=== PATIENT | male | born 1985 | race Caucasian/White ===

== ENCOUNTER 2016-10-23 16:52 | Inpatient (IN) | payer MEDICAID, OTHER ==
[2016-10-23] MEDS ORDERED: Sodium Chloride 0.9% 1,000 ML IV ONE (17:56)
[2016-10-23] MEDS ORDERED: Sodium Chloride 0.9% 1,000 ML ONE (18:19)
[2016-10-23 18:25] LABS: BASO % 0.2 % (0.0-2.0); EOS % 0.5 % (0.0-4.0); HEMATOCRIT 44.6 % (35.0-51.0); LYMPH # 1.8 K/uL (1.0-4.3); LYMPH % 18.4 % (20.0-40.0); MEAN CORPUSCULAR HEMOGLOBIN 25.6 pg (27.0-31.0); MEAN CORPUSCULAR HGB CONC 33.2 g/dL (33.0-37.0); MEAN PLATELET VOLUME 7.5 fL (7.2-11.7); MONO # 0.6 K/uL (0.0-0.8); MONO % 5.8 % (0.0-10.0); RED CELL DISTRIBUTION WIDTH 13.4 % (11.5-14.5); WHITE BLOOD COUNT 9.8 K/uL (4.8-10.8)
[2016-10-23 18:30] LABS: CHLORIDE 97 mmol/L (98-107); SODIUM 138 mmol/L (132-148)
[2016-10-23 18:31] LABS: POTASSIUM 3.9 mmol/L (3.6-5.2)
[2016-10-23 18:33] LABS: ALB/GLOB RATIO 1.2 (1.0-2.1); AST/SGOT 21 U/L (17-59); BLOOD UREA NITROGEN 11 mg/dL (9-20); CARBON DIOXIDE 26 mmol/L (22-30); GFR AFRICAN-AMERICAN > 60; GLUCOSE,RANDOM 83 mg/dL (75-110); TOTAL PROTEIN 8.3 g/dL (6.3-8.3)
[2016-10-23 18:34] LABS: ALKALINE PHOSPHATASE 60 U/L (38-126); ALT/SGPT 44 U/L (21-72); CALCIUM 9.4 mg/dl (8.6-10.4)
[2016-10-23 18:37] LABS: INR 1.2
[2016-10-23] MEDS ORDERED: Iohexol 350mg/ml 100 ML ONE (18:40)
--- NOTE | 2016-10-23 19:41 | CT ---
EXAM: CT Neck With Intravenous Contrast EXAM DATE/TIME: Exam ordered 10/23/2016 5:47 PM CLINICAL HISTORY: 31 years old, male; Condition or disease; Salivary gland disease; Additional info: R face/neck, ? sialoadenitis TECHNIQUE: Axial computed tomography images of the neck with intravenous contrast. All CT scans at this facility use one or more dose reduction techniques, viz.: automated exposure control; ma/kV adjustment per patient size (including targeted exams where dose is matched to indication; i.e. head); or iterative reconstruction technique. Coronal and sagittal reformatted images were created and reviewed. CONTRAST: 100 mL of OMNIPAQUE 360 administered intravenously. COMPARISON: No relevant prior studies available. FINDINGS: Nasopharynx: Unremarkable. Oropharynx: Unremarkable. No significant tonsillar enlargement. No peritonsillar abscess. Hypopharynx: Unremarkable. Larynx: Unremarkable. Normal epiglottis. Trachea: Unremarkable. Retropharyngeal space: Unremarkable. Submandibular/parotid glands: There is asymmetric enlargement of the right submandibular gland when compared with the left. There is a calcification measuring 1.9 x 1 x 1.1 cm in noted at the level of the right submandibular gland duct.. Extending medially towards the floor the mouth is a fluid collection measuring 1.9 x 1.1 x 0.82 cm The inflammatory changes noted surrounding the right submandibular gland extend laterally to include the platysmas muscle. Inflammatory change also extends into the right parapharyngeal fat space. The Thyroid: Unremarkable. No enlarged or calcified nodules. Bones/joints: No acute fracture. Soft tissues: See above. Vasculature: No acute findings. Lymph nodes: . An enlarged right jugulodigastric node is present measuring 1.4 x 1.2 x 3.5 cm. A pre-submandibular lymph node is noted measuring 1.3 x 0.9 x 1.5 cm. there are multiple lymph nodes noted in the posterior cervical space measuring under a centimeter. Sinuses: Mucosal thickening is seen in the left maxillary sinus. Lung apices: Unremarkable as visualized. IMPRESSION: 1. Sialitis involving the submandibular gland on the right secondary to an obstructing calculus. 2. Discrete fluid collection medial to the calculus suggests a small abscess. The fluid collection in could also represent a dilated portion of the submandibular duct.
[2016-10-23] MEDS ORDERED: Piperacillin/Tazobact 3.375 gm 100 ML IV STA (19:44)
[2016-10-23] MEDS ORDERED: Piperacillin/Tazobact 3.375 gm 100 ML IVPB ONE (19:48)
--- NOTE | 2016-10-23 19:53 | C.PDOC ---
History Of Present Illness 31 year old male presents to the ED with pain and swelling below the right lower jaw for one week. Patient was seen by ENT Dr. Lebron and started oral antibiotics five days ago. Patient has been compliant but notes no improvement. He was referred to the ED for a CT scan. Patient denies fever, chills, nausea, or vomiting. Time Seen by Provider: 10/23/16 17:45 Chief Complaint (Nursing): ENT Problem History Per: Patient History/Exam Limitations: None Onset/Duration Of Symptoms: Days (1 week ) Current Symptoms Are (Timing): Still Present Quality (Mouth/Throat): Other (Swelling and pain to below right lower jaw ) Symptoms Have Been: Continuous Anticoagulant/Antiplatlet Use?: No Recent Aspirin Use: No Past Medical History Reviewed: Historical Data, Nursing Documentation, Vital Signs Vital Signs: Last Vital Signs Temp 99.3 F 10/23/16 17:13 Pulse 76 10/23/16 17:13 Resp 18 10/23/16 17:13 BP 138/82 10/23/16 17:13 Pulse Ox 99 10/23/16 19:54 Surgical History: Tonsillectomy Family History: States: Unknown Family Hx - Social History Hx Alcohol Use: Yes Hx Substance Use: No - Immunization History Hx Tetanus Toxoid Vaccination: No Hx Influenza Vaccination: No Hx Pneumococcal Vaccination: No Review Of Systems Constitutional: Negative for: Fever, Chills ENT: Positive for: Other (pain and swelling right lower jaw ) Cardiovascular: Negative for: Chest Pain, Palpitations Gastrointestinal: Negative for: Nausea, Vomiting, Abdominal Pain, Diarrhea Physical Exam - Physical Exam Appears: Non-toxic, No Acute Distress Skin: Warm, Dry Head: Other (Swelling and firm mass in right submandibular area ) Eye(s): bilateral: Normal Inspection, PERRL, EOMI Ear(s): Bilateral: Normal Nose: Normal Oral Mucosa: Moist Tongue: Normal Appearing, No Swelling Lips: Normal Appearing, No Swelling Teeth: Normal Dentition Gingiva: Normal Appearing Throat: Normal, No Erythema, No Exudate Neck: Supple Chest: Symmetrical, No Deformity Cardiovascular: Rhythm Regular Respiratory: Normal Breath Sounds, No Rhonchi, No Wheezing ED Course And Treatment - Laboratory Results Result Diagrams: 10/23/16 18:17 10/23/16 18:17 Lab Interpretation: Normal O2 Sat by Pulse Oximetry: 99 (room air ) Progress Note: 1930: zosyn, IVF, toradol, tramadol Reevaluation Time: 19:45 Reassessment Condition: Improved - Physician Consult Information Time Consulting Physician Contacted: 18:00 Physician Contacted: Haris Lebron Outcome Of Conversation: Case discussed with Dr. Lebron at 18:00 and 19:30, recommends admission to medicine. Agrees with plan of IV antibiotics and transfer to [facility] next week. Medical Decision Making Medical Decision Making: large R submandibular sialolith 1cm, failed outpatient PO ABX regimen, now for IV ABX and cool-off period pending transfer out in a few days for surgical excision. Disposition Doctor Will See Patient In The: Hospital Counseled Patient/Family Regarding: Studies Performed, Diagnosis - Disposition Disposition: HOSPITALIZED Disposition Time: 19:54 Condition: GOOD - Clinical Impression Clinical Impression: Sialolithiasis of submandibular gland - Scribe Statement The provider has reviewed the documentation as recorded by the Scribe Norma Graham All medical record entries made by the Yayaibabdirashid were at my direction and personally dictated by me. I have reviewed the chart and agree that the record accurately reflects my personal performance of the history, physical exam, medical decision making, and the department course for this patient. I have also personally directed, reviewed, and agree with the discharge instructions and disposition.
--- NOTE | 2016-10-23 20:20 | CP.PCM.HP ---
Addendum entered and electronically signed by Kerri Rios DO 10/23/16 21:57 : Tramadol PO TID PRN for pain Original Note: <Kerri Rios - Last Filed: 10/23/16 21:38> History of Present Illness - History of Present Illness History of Present Illness: Medicine Note for Dr. Castaneda CC: Right sided throat pain HPI: 31M with PMHx of right sided salivary stone came to the ED as per reccs of Dr. Lebron. Patient has a history of a salivary stone several years ago. He was seen at that time by Dr. Lebron and was given oral antibiotics and it resolved. Patient reports he started to feel the mass again over the weekend, had trouble swallowing and eating. He saw Dr. Lebron in his office on Wednesday, was given Augmentin. Patient has taken Augmentin x 5 days with no improvement. The pain has worsened and the patient is having difficulty even tolerating liquids. Patient reached out to Dr. Lebron who instructed the patient to come to the ED. As per Dr. Lebron patient pending transfer out in a few days for surgical excision. Denied fever, chills, headache, abdominal pain, n/v/d/c, or urinary symptoms. PMHx: Right sided salivary stone PSHx: Denied Meds: Was taking Augmentin x 5 days - prescribed to him by Dr. Lebron All: NKDA SHx: Denied x3 FHx: Unremarkable Present on Admission - Present on Admission Any Indicators Present on Admission: No Past Patient History - Infectious Disease Hx of Infectious Diseases: None - Past Social History Smoking Status: Never Smoked - PSYCHIATRIC Hx Substance Use: No - SURGICAL HISTORY Hx Tonsillectomy: Yes - ANESTHESIA Hx Anesthesia: Yes Hx Anesthesia Reactions: No Hx Malignant Hyperthermia: No Meds Allergies/Adverse Reactions: Allergies Allergy/AdvReac Type Severity Reaction Status Date / Time No Known Allergies Allergy Verified 10/23/16 17:16 Physical Exam - Constitutional Appears: No Acute Distress - Head Exam Head Exam: NORMAL INSPECTION, NORMOCEPHALIC - Eye Exam Eye Exam: EOMI, Normal appearance, PERRL Pupil Exam: NORMAL ACCOMODATION - ENT Exam ENT Exam: Mucous Membranes Moist Additional comments: poor dentition - Neck Exam Neck exam: Positive for: Tenderness. Negative for: Lymphadenopathy, Thyromegaly Additional comments: Right sided mass - Respiratory Exam Respiratory Exam: Clear to Auscultation Bilateral, NORMAL BREATHING PATTERN. absent: Decreased Breath Sounds, Rhonchi, Wheezes - Cardiovascular Exam Cardiovascular Exam: REGULAR RHYTHM - GI/Abdominal Exam GI & Abdominal Exam: Normal Bowel Sounds, Soft. absent: Distended, Tenderness - Extremities Exam Extremities exam: Positive for: normal inspection, pedal pulses present. Negative for: pedal edema, tenderness - Neurological Exam Neurological exam: Alert, Oriented x3 - Skin Skin Exam: Dry, Intact, Normal Color, Warm Results - Vital Signs Recent Vital Signs: Last Vital Signs Temp 99.3 F 10/23/16 17:13 Pulse 76 10/23/16 17:13 Resp 18 10/23/16 17:13 BP 138/82 10/23/16 17:13 Pulse Ox 99 10/23/16 20:14 - Labs Result Diagrams: 10/23/16 18:17 10/23/16 18:17 Assessment & Plan - Assessment and Plan (Free Text) Plan: Right Sided Submandibular Sialolith * Failed outpatient antibiotic tx * ENT- Dr. Lebron consulted - help appreciated - pending transfer out in a few days for surgical excision. * Neck CT: 1. Sialitis involving the submandibular gland on the right secondary to an obstructing calculus. 2. Discrete fluid collection medial to the calculus suggests a small abscess. The fluid collection in could also represent a dilated portion of the submandibular duct. * Started on Zosyn Q6H Prophylactic Measures * GI PPX: Protonix 40mg IVP daily * DVT PPX: SCDs, Heparin Q12 * CLD - due to difficulty swallowing Disposition: Pending transfer out for surgical excision. Blanca London Dr., DO, PGY-1 <Bobby Castaneda - Last Filed: 10/24/16 06:10> Results - Vital Signs Recent Vital Signs: Last Vital Signs Temp 97.8 F 10/24/16 00:00 Pulse 64 10/24/16 00:00 Resp 20 10/24/16 00:00 BP 103/67 10/24/16 00:00 Pulse Ox 99 10/24/16 00:00 - Labs Result Diagrams: 10/23/16 18:17 10/23/16 18:17 Assessment & Plan - Date & Time Date: 10/24/16 (I have seen and examined the patient. I agree with the findings and plan of care as documented by Dr. Rios. Patient with sialolith. Consult to Dr Lebron. Continue Zosyn. Pending transfer to another facility for surgical excision. Symptomatic treatment. Monitor for acute changes.) Time: 06:09 Attending/Attestation - Attestation I have personally seen and examined this patient.: Yes I have fully participated in the care of the patient.: Yes I have reviewed all pertinent clinical information: Yes
[2016-10-23] MEDS: Piperacill/Tazo 3.375gm in Dex 3.375 GM/50 ML BAG IVPB SCH (20:32)
[2016-10-23 22:14] VITALS: RESP 20
--- NOTE | 2016-10-24 01:46 | CP.PCM.PN ---
<LowKerri buchanan - Last Filed: 10/24/16 01:44> Subjective - Date & Time of Evaluation Date of Evaluation: 10/24/16 Time of Evaluation: 01:00 - Subjective Subjective: Medicine Note for Dr. Silva Patient was seen and examined at bedside. Patient is resting. No acute complaints, pain is well controlled. Denied fever, chills, headache, chest pain , abdominal pain, n/v/d/c, or urinary symptoms. Objective - Vital Signs/Intake and Output Vital Signs (last 24 hours): Temp Pulse Resp BP Pulse Ox 97.8 F 64 20 103/67 99 10/24/16 00:00 10/24/16 00:00 10/24/16 00:00 10/24/16 00:00 10/24/16 00:00 - Medications Medications: Current Medications Heparin Sodium (Porcine) (Heparin) 5,000 units SC Q12 [facility] Last Admin: 10/23/16 20:41 Dose: 5,000 units Piperacillin Sod/Tazobactam Sod (Zosyn 3.375 Gm Iv Premix) 3.375 gm in 50 mls @ 200 mls/hr IVPB Q6H [facility] Last Admin: 10/23/16 20:32 Dose: Not Given Pantoprazole Sodium (Protonix Inj) 40 mg IVP Q12H [facility] Last Admin: 10/24/16 00:15 Dose: 40 mg Saccharomyces Boulardii (Florastor) 250 mg PO DAILY [facility] Tramadol HCl (Ultram) 50 mg PO TID PRN PRN Reason: Pain, moderate (4-7) - Labs Labs: PT 13.4 SECONDS (9.7-12.2) H 10/23/16 18:17 INR 1.2 10/23/16 18:17 APTT 32 SECONDS (21-34) 10/23/16 18:17 - Constitutional Appears: No Acute Distress - Head Exam Head Exam: NORMAL INSPECTION, NORMOCEPHALIC - Eye Exam Eye Exam: EOMI, Normal appearance, PERRL Pupil Exam: NORMAL ACCOMODATION - ENT Exam ENT Exam: Mucous Membranes Moist - Neck Exam Additional comments: Right sided mass - Respiratory Exam Respiratory Exam: Clear to Ausculation Bilateral, NORMAL BREATHING PATTERN. absent: Decreased Breath Sounds, Wheezes - Cardiovascular Exam Cardiovascular Exam: REGULAR RHYTHM, RRR, +S1, +S2 - GI/Abdominal Exam GI & Abdominal Exam: Soft, Normal Bowel Sounds. absent: Distended, Tenderness - Extremities Exam Extremities Exam: Normal Inspection. absent: Pedal Edema, Tenderness - Neurological Exam Neurological Exam: Alert, Awake, Oriented x3 - Psychiatric Exam Psychiatric exam: Normal Affect, Normal Mood - Skin Skin Exam: Dry, Intact, Normal Color, Warm Assessment and Plan - Assessment and Plan (Free Text) Plan: Right Sided Submandibular Sialolith * Failed outpatient antibiotic tx * ENT- Dr. Lebron consulted - help appreciated - pending transfer out in a few days for surgical excision. * Neck CT: 1. Sialitis involving the submandibular gland on the right secondary to an obstructing calculus. 2. Discrete fluid collection medial to the calculus suggests a small abscess. The fluid collection in could also represent a dilated portion of the submandibular duct. * Started on Zosyn Q6H * Tramadol PO TID PRN for pain Prophylactic Measures * GI PPX: Protonix 40mg IVP daily * DVT PPX: SCDs, Heparin Q12 * CLD - due to difficulty swallowing Disposition: Pending transfer out for surgical excision. DW Blanca Cleary DO, PGY-1 <Kev Rossi H - Last Filed: 10/24/16 14:01> Objective - Vital Signs/Intake and Output Vital Signs (last 24 hours): Temp Pulse Resp BP Pulse Ox 98.0 F 75 20 108/73 100 10/24/16 08:14 10/24/16 08:14 10/24/16 08:14 10/24/16 08:14 10/24/16 08:14 - Medications Medications: Current Medications Heparin Sodium (Porcine) (Heparin) 5,000 units SC Q12 [facility] Last Admin: 10/24/16 09:54 Dose: 5,000 units Piperacillin Sod/Tazobactam Sod (Zosyn 3.375 Gm Iv Premix) 3.375 gm in 50 mls @ 200 mls/hr IVPB Q6H [facility] Last Admin: 10/24/16 08:30 Dose: 200 mls/hr Ketorolac Tromethamine (Toradol) 30 mg IVP Q6 PRN PRN Reason: Pain, Mild (1-3) Pantoprazole Sodium (Protonix Inj) 40 mg IVP Q12H [facility] Last Admin: 10/24/16 08:31 Dose: 40 mg Saccharomyces Boulardii (Florastor) 250 mg PO DAILY [facility] Last Admin: 10/24/16 09:56 Dose: 250 mg Tramadol HCl (Ultram) 50 mg PO TID PRN PRN Reason: Pain, moderate (4-7) Last Admin: 10/24/16 11:01 Dose: 50 mg - Labs Labs: 10/24/16 08:01 10/24/16 08:01 PT 13.4 SECONDS (9.7-12.2) H 10/23/16 18:17 INR 1.2 10/23/16 18:17 APTT 32 SECONDS (21-34) 10/23/16 18:17 Attending/Attestation - Attestation I have personally seen and examined this patient.: Yes I have fully participated in the care of the patient.: Yes I have reviewed all pertinent clinical information, including history, physical exam and plan: Yes Notes (Text): Medical Attending: Patient was seen and examined by me. Patient is currently on IV abx at this time. He failed out patient treatment at this time and so was told to come to the hospital and had a CT scan showing a stone that involving the submandibular gland on the right secondary causing obstruction. The report also shows fluid collection medial to the stone suggesting a small abscess. On exam he does have submandibular swelling as well as a palpable lymph node. From understanding the patient may need to be transffered to another facility for potential surgery. Kev Rossi
[2016-10-24] MEDS: Piperacill/Tazo 3.375gm in Dex 3.375 GM/50 ML BAG IVPB SCH ×4 (02:32→20:34)
[2016-10-24 08:14] LABS: BASO % 0.3 % (0.0-2.0); EOS # 0.1 K/uL (0.0-0.7); HEMATOCRIT 42.5 % (35.0-51.0); LYMPH # 2.3 K/uL (1.0-4.3); LYMPH % 39.2 % (20.0-40.0); MEAN CELL VOLUME 77.1 fL (80.0-94.0); MEAN CORPUSCULAR HEMOGLOBIN 25.1 pg (27.0-31.0); MEAN CORPUSCULAR HGB CONC 32.6 g/dL (33.0-37.0); MEAN PLATELET VOLUME 7.8 fL (7.2-11.7); MONO # 0.4 K/uL (0.0-0.8); MONO % 7.3 % (0.0-10.0); NRBC % 0.1 % (0.0-2.0); RED CELL DISTRIBUTION WIDTH 13.3 % (11.5-14.5); WHITE BLOOD COUNT 5.9 K/uL (4.8-10.8)
[2016-10-24] MEDS: Saccharomyces Boulardi 250 mg Cap PO SCH ×2 (08:31→09:56)
[2016-10-24 08:45] LABS: CHLORIDE 99 mmol/L (98-107)
[2016-10-24 08:46] LABS: POTASSIUM 3.7 mmol/L (3.6-5.2); SODIUM 137 mmol/L (132-148)
[2016-10-24 08:48] LABS: ALB/GLOB RATIO 1.2 (1.0-2.1); AST/SGOT 18 U/L (17-59); BILIRUBIN,TOTAL 1.3 mg/dL (0.2-1.3); CARBON DIOXIDE 25 mmol/L (22-30); GFR AFRICAN-AMERICAN > 60
[2016-10-24 08:49] LABS: ALKALINE PHOSPHATASE 51 U/L (38-126); ALT/SGPT 36 U/L (21-72); BLOOD UREA NITROGEN 14 mg/dL (9-20); CALCIUM 8.7 mg/dl (8.6-10.4); GLUCOSE,RANDOM 62 mg/dL (75-110)
[2016-10-24] MEDS ORDERED: Saccharomyces Boulardi 250 mg Cap PO SCH (10:00)
--- NOTE | 2016-10-24 20:38 | CON ---
DATE: 10/24/2016 REASON FOR CONSULTATION: Sialoadenitis. HISTORY OF PRESENT ILLNESS: This is a 31-year-old male with about a 1-week history of edema of the right submandibular gland. The patient was seen by me in the office. At that time, it was noted to be moderate. The pain that the patient had was also moderate, constant. The patient was placed on p.o. antibiotics, however, it did not improve. He presented to the office yesterday with increased pain and swelling and was sent to the emergency room and had CAT scan done, which showed a stone in his submandibular duct. The patient is on currently antibiotics. He reports decreased pain. PAST MEDICAL HISTORY: As noted in the chart by me. MEDICATIONS: As noted in the chart by me. PHYSICAL EXAMINATION: HEAD: Atraumatic, normocephalic. FACE: Good facial movements bilaterally. CONSTITUTIONAL: Well fed, well nourished. COMMUNICATION: Communicates appropriately. EXTERNAL NOSE: No masses. No lesions. No erythema. No edema. INTERNAL NOSE: No masses. No lesions. No erythema. No edema. ORAL CAVITY AND OROPHARYNX: No masses. No lesions. No erythema. No edema. no stone palpated in the submandibular duct. LIPS AND GUMS: No masses. No lesions. No erythema. No edema. NECK: Supple. The right submandibular gland is enlarged and tender to touch. LYMPH NODES: No lymphadenopathy of the neck. THYROID: No thyromegaly. No goiter. ASSESSMENT: Sialoadenitis. Deviated septum. PLAN: Continue IV antibiotics. Consider Decadron IV 10 mg x1. Haris Lebron MD MTDD
--- NOTE | 2016-10-25 01:42 | CP.PCM.PN ---
<Kerri Rios - Last Filed: 10/25/16 01:40> Subjective - Date & Time of Evaluation Date of Evaluation: 10/25/16 Time of Evaluation: 01:00 - Subjective Subjective: Medicine Note for Dr. Silva Patient was seen and examined at bedside. Patient is resting. No acute complaints, pain is well controlled. Denied fever, chills, headache, chest pain , abdominal pain, n/v/d/c, or urinary symptoms. Objective - Vital Signs/Intake and Output Vital Signs (last 24 hours): Temp Pulse Resp BP Pulse Ox 98.1 F 62 20 101/69 98 10/25/16 00:00 10/25/16 00:00 10/25/16 00:00 10/25/16 00:00 10/25/16 00:00 Intake and Output: 10/24/16 10/25/16 18:59 06:59 Intake Total 460 450 Balance 460 450 - Medications Medications: Current Medications Heparin Sodium (Porcine) (Heparin) 5,000 units SC Q12 [facility] Last Admin: 10/24/16 21:10 Dose: 5,000 units Piperacillin Sod/Tazobactam Sod (Zosyn 3.375 Gm Iv Premix) 3.375 gm in 50 mls @ 200 mls/hr IVPB Q6H [facility] Last Admin: 10/24/16 20:34 Dose: 200 mls/hr Ketorolac Tromethamine (Toradol) 30 mg IVP Q6 PRN PRN Reason: Pain, Mild (1-3) Last Admin: 10/24/16 23:39 Dose: 30 mg Pantoprazole Sodium (Protonix Inj) 40 mg IVP Q12H [facility] Last Admin: 10/24/16 20:30 Dose: 40 mg Saccharomyces Boulardii (Florastor) 250 mg PO DAILY [facility] Last Admin: 10/24/16 09:56 Dose: 250 mg Tramadol HCl (Ultram) 50 mg PO TID PRN PRN Reason: Pain, moderate (4-7) Last Admin: 10/24/16 11:01 Dose: 50 mg - Labs Labs: 10/24/16 08:01 10/24/16 08:01 PT 13.4 SECONDS (9.7-12.2) H 10/23/16 18:17 INR 1.2 08/18/17 18:17 APTT 32 SECONDS (21-34) 10/23/16 18:17 - Constitutional Appears: No Acute Distress - Head Exam Head Exam: NORMAL INSPECTION, NORMOCEPHALIC - Eye Exam Eye Exam: EOMI, Normal appearance Pupil Exam: NORMAL ACCOMODATION - ENT Exam ENT Exam: Mucous Membranes Moist - Neck Exam Neck Exam: Lymphadenopathy Additional comments: right sided neck mass - Respiratory Exam Respiratory Exam: Clear to Ausculation Bilateral, NORMAL BREATHING PATTERN. absent: Decreased Breath Sounds, Wheezes - Cardiovascular Exam Cardiovascular Exam: REGULAR RHYTHM, RRR, +S1, +S2 - GI/Abdominal Exam GI & Abdominal Exam: Soft, Normal Bowel Sounds. absent: Distended, Tenderness - Extremities Exam Extremities Exam: Normal Inspection. absent: Pedal Edema, Tenderness - Neurological Exam Neurological Exam: Alert, Awake, Oriented x3 - Psychiatric Exam Psychiatric exam: Normal Affect, Normal Mood - Skin Skin Exam: Dry, Intact, Normal Color, Warm Assessment and Plan - Assessment and Plan (Free Text) Plan: Right Sided Submandibular Sialolith * Failed outpatient antibiotic tx * ENT- Dr. Lebron consulted - help appreciated - pending transfer out in a few days for surgical excision. * Neck CT: 1. Sialitis involving the submandibular gland on the right secondary to an obstructing calculus. 2. Discrete fluid collection medial to the calculus suggests a small abscess. The fluid collection in could also represent a dilated portion of the submandibular duct. * Started on Zosyn Q6H * Tramadol PO TID PRN for pain Prophylactic Measures * GI PPX: Protonix 40mg IVP daily * DVT PPX: SCDs, Heparin Q12 * CLD - due to difficulty swallowing Disposition: Pending transfer out for surgical excision. Blanca Lee Dr., DO, PGY-1 <Fermin Pan - Last Filed: 10/25/16 18:00> Objective - Vital Signs/Intake and Output Vital Signs (last 24 hours): Temp Pulse Resp BP Pulse Ox 98.2 F 82 20 118/80 99 10/25/16 15:00 10/25/16 15:00 10/25/16 15:00 10/25/16 15:00 10/25/16 15:00 Intake and Output: 10/25/16 10/25/16 06:59 18:59 Intake Total 500 Output Total 500 Balance 0 - Medications Medications: Current Medications Heparin Sodium (Porcine) (Heparin) 5,000 units SC Q12 [facility] Last Admin: 10/25/16 09:44 Dose: 5,000 units Piperacillin Sod/Tazobactam Sod (Zosyn 3.375 Gm Iv Premix) 3.375 gm in 50 mls @ 200 mls/hr IVPB Q6H [facility] Last Admin: 10/25/16 15:21 Dose: 200 mls/hr Ketorolac Tromethamine (Toradol) 30 mg IVP Q6 PRN PRN Reason: Pain, Mild (1-3) Last Admin: 10/25/16 09:51 Dose: 30 mg Pantoprazole Sodium (Protonix Ec Tab) 20 mg PO DAILY [facility] Last Admin: 10/25/16 09:43 Dose: 20 mg Saccharomyces Boulardii (Florastor) 250 mg PO DAILY [facility] Last Admin: 10/25/16 09:44 Dose: 250 mg Tramadol HCl (Ultram) 50 mg PO TID PRN PRN Reason: Pain, moderate (4-7) Last Admin: 10/24/16 11:01 Dose: 50 mg - Labs Labs: PT 13.4 SECONDS (9.7-12.2) H 10/23/16 18:17 INR 1.2 10/23/16 18:17 APTT 32 SECONDS (21-34) 10/23/16 18:17 Attending/Attestation - Attestation I have personally seen and examined this patient.: Yes I have fully participated in the care of the patient.: Yes I have reviewed all pertinent clinical information, including history, physical exam and plan: Yes Notes (Text): 10/25/16 17:57 Patient was seen and examined at 3:10 PM 10/25/16 350 B Upon FULL ROS: Pain in the right side of the face is currently manageable NO bowel movement since Wednesday Tolerating liquid diet NO other complaints upon FULL ROS In addition to the exam above: HEENT: dry tongue with white pasty material Assessments: 1). Right Submandibular Sialolith: awaiting arrangement by ENT Dr. Emmanuel for transfer to another institution for surgery for removal. Fermin Pan D.O.
[2016-10-25] MEDS: Piperacill/Tazo 3.375gm in Dex 3.375 GM/50 ML BAG IVPB SCH ×4 (03:10→20:58)
[2016-10-25 08:38] LABS: BASO % 0.5 % (0.0-2.0); EOS # 0.1 K/uL (0.0-0.7); EOS % 1.7 % (0.0-4.0); HEMATOCRIT 42.4 % (35.0-51.0); LYMPH # 1.6 K/uL (1.0-4.3); LYMPH % 39.3 % (20.0-40.0); MEAN CELL VOLUME 76.6 fL (80.0-94.0); MEAN CORPUSCULAR HGB CONC 32.7 g/dL (33.0-37.0); MEAN PLATELET VOLUME 7.7 fL (7.2-11.7); MONO # 0.3 K/uL (0.0-0.8); MONO % 7.6 % (0.0-10.0); NRBC % 0.1 % (0.0-2.0); RED CELL DISTRIBUTION WIDTH 12.9 % (11.5-14.5)
[2016-10-25 08:51] LABS: ALB/GLOB RATIO 1.2 (1.0-2.1); ALKALINE PHOSPHATASE 50 U/L (38-126); ALT/SGPT 31 U/L (21-72); AST/SGOT 18 U/L (17-59); BILIRUBIN,TOTAL 0.8 mg/dL (0.2-1.3); BLOOD UREA NITROGEN 11 mg/dL (9-20); CALCIUM 9.1 mg/dl (8.6-10.4); CARBON DIOXIDE 26 mmol/L (22-30); CHLORIDE 100 mmol/L (98-107); GFR AFRICAN-AMERICAN > 60; GLUCOSE,RANDOM 70 mg/dL (75-110); SODIUM 137 mmol/L (132-148); TOTAL PROTEIN 6.6 g/dL (6.3-8.3)
[2016-10-25] MEDS: Pantoprazole 20 mg EC Tab PO SCH (09:43)
[2016-10-25] MEDS: Saccharomyces Boulardi 250 mg Cap PO SCH (09:44)
[2016-10-26] MEDS: Piperacill/Tazo 3.375gm in Dex 3.375 GM/50 ML BAG IVPB SCH ×4 (02:14→20:21)
[2016-10-26 06:29] LABS: BASO % 0.8 % (0.0-2.0); EOS # 0.1 K/uL (0.0-0.7); EOS % 2.2 % (0.0-4.0); HEMATOCRIT 41.8 % (35.0-51.0); LYMPH # 2.2 K/uL (1.0-4.3); LYMPH % 42.2 % (20.0-40.0); MEAN CELL VOLUME 76.8 fL (80.0-94.0); MEAN CORPUSCULAR HEMOGLOBIN 25.7 pg (27.0-31.0); MEAN CORPUSCULAR HGB CONC 33.5 g/dL (33.0-37.0); MEAN PLATELET VOLUME 7.2 fL (7.2-11.7); MONO # 0.5 K/uL (0.0-0.8); MONO % 8.8 % (0.0-10.0); NRBC % 0.3 % (0.0-2.0); WHITE BLOOD COUNT 5.2 K/uL (4.8-10.8)
[2016-10-26 06:43] LABS: ALB/GLOB RATIO 1.3 (1.0-2.1); ALKALINE PHOSPHATASE 49 U/L (38-126); ALT/SGPT 26 U/L (21-72); AST/SGOT 14 U/L (17-59); BILIRUBIN,TOTAL 0.7 mg/dL (0.2-1.3); BLOOD UREA NITROGEN 7 mg/dL (9-20); CALCIUM 9.2 mg/dl (8.6-10.4); CARBON DIOXIDE 27 mmol/L (22-30); CHLORIDE 99 mmol/L (98-107); GFR AFRICAN-AMERICAN > 60; GLUCOSE,RANDOM 75 mg/dL (75-110); POTASSIUM 4.2 mmol/L (3.6-5.2); SODIUM 138 mmol/L (132-148); TOTAL PROTEIN 6.6 g/dL (6.3-8.3)
[2016-10-26] MEDS: Saccharomyces Boulardi 250 mg Cap PO SCH (09:26)
[2016-10-26] MEDS: Pantoprazole 20 mg EC Tab PO SCH (09:31)
--- NOTE | 2016-10-26 12:16 | CP.PCM.PN ---
Subjective - Date & Time of Evaluation Date of Evaluation: 10/26/16 Time of Evaluation: 12:15 - Subjective Subjective: Improved pain, it is mild now neck: decreased size of right submandibular gland a/p: sialoadenitis improving cont abx rec decadron 10 mg iv once Objective - Vital Signs/Intake and Output Vital Signs (last 24 hours): Temp Pulse Resp BP Pulse Ox 98.3 F 76 20 106/71 100 10/26/16 07:19 10/26/16 07:19 10/26/16 07:19 10/26/16 07:19 10/26/16 07:19 Intake and Output: 10/26/16 10/26/16 06:59 18:59 Intake Total 650 Balance 650 - Medications Medications: Current Medications Docusate Sodium (Colace) 100 mg PO BID [facility] Last Admin: 10/26/16 09:26 Dose: 100 mg Heparin Sodium (Porcine) (Heparin) 5,000 units SC Q12 [facility] Last Admin: 10/26/16 09:26 Dose: 5,000 units Piperacillin Sod/Tazobactam Sod (Zosyn 3.375 Gm Iv Premix) 3.375 gm in 50 mls @ 200 mls/hr IVPB Q6H [facility] Last Admin: 10/26/16 08:34 Dose: 200 mls/hr Ketorolac Tromethamine (Toradol) 30 mg IVP Q6 PRN PRN Reason: Pain, Mild (1-3) Last Admin: 10/25/16 09:51 Dose: 30 mg Pantoprazole Sodium (Protonix Ec Tab) 20 mg PO DAILY [facility] Last Admin: 10/26/16 09:31 Dose: 20 mg Saccharomyces Boulardii (Florastor) 250 mg PO DAILY [facility] Last Admin: 10/26/16 09:26 Dose: 250 mg Tramadol HCl (Ultram) 50 mg PO TID PRN PRN Reason: Pain, moderate (4-7) Last Admin: 10/25/16 21:17 Dose: 50 mg - Labs Labs: 10/26/16 06:16 10/26/16 06:16 PT 13.4 SECONDS (9.7-12.2) H 10/23/16 18:17 INR 1.2 10/23/16 18:17 APTT 32 SECONDS (21-34) 10/23/16 18:17
--- NOTE | 2016-10-26 13:29 | CP.PCM.PN ---
<Manuel Kc - Last Filed: 10/26/16 13:25> Subjective - Date & Time of Evaluation Date of Evaluation: 10/26/16 Time of Evaluation: 07:10 - Subjective Subjective: PGY-[address] Fermin Pan Patient seen and examined at bedside. Patient reports that he is doing well except for pain when swallowing, although he does deny inability to swallow. Patient reports doing well on liquid diet. Patient denies fever, chills, headache, dizziness, chest pain, SOB, abdominal pain, dysuria. Objective - Vital Signs/Intake and Output Vital Signs (last 24 hours): Temp Pulse Resp BP Pulse Ox 98.3 F 76 20 106/71 100 10/26/16 07:19 10/26/16 07:19 10/26/16 07:19 10/26/16 07:19 10/26/16 07:19 Intake and Output: 10/26/16 10/26/16 06:59 18:59 Intake Total 650 Balance 650 - Medications Medications: Current Medications Dexamethasone (Decadron Inj) 10 mg IVP ONCE ONE Stop: 10/26/16 13:09 Docusate Sodium (Colace) 100 mg PO BID [facility] Last Admin: 10/26/16 09:26 Dose: 100 mg Heparin Sodium (Porcine) (Heparin) 5,000 units SC Q12 [facility] Last Admin: 10/26/16 09:26 Dose: 5,000 units Piperacillin Sod/Tazobactam Sod (Zosyn 3.375 Gm Iv Premix) 3.375 gm in 50 mls @ 200 mls/hr IVPB Q6H [facility] Last Admin: 10/26/16 08:34 Dose: 200 mls/hr Ketorolac Tromethamine (Toradol) 30 mg IVP Q6 PRN PRN Reason: Pain, Mild (1-3) Last Admin: 10/25/16 09:51 Dose: 30 mg Pantoprazole Sodium (Protonix Ec Tab) 20 mg PO DAILY [facility] Last Admin: 10/26/16 09:31 Dose: 20 mg Saccharomyces Boulardii (Florastor) 250 mg PO DAILY [facility] Last Admin: 10/26/16 09:26 Dose: 250 mg Tramadol HCl (Ultram) 50 mg PO TID PRN PRN Reason: Pain, moderate (4-7) Last Admin: 10/25/16 21:17 Dose: 50 mg - Labs Labs: 10/26/16 06:16 10/26/16 06:16 PT 13.4 SECONDS (9.7-12.2) H 10/23/16 18:17 INR 1.2 10/23/16 18:17 APTT 32 SECONDS (21-34) 10/23/16 18:17 - Constitutional Appears: No Acute Distress - Head Exam Head Exam: ATRAUMATIC, NORMAL INSPECTION, NORMOCEPHALIC - Eye Exam Eye Exam: EOMI, PERRL - ENT Exam Additional comments: Right sided neck mass - Respiratory Exam Respiratory Exam: Clear to Ausculation Bilateral. absent: Rales, Rhonchi, Wheezes - Cardiovascular Exam Cardiovascular Exam: REGULAR RHYTHM, +S1, +S2 - GI/Abdominal Exam GI & Abdominal Exam: Soft, Normal Bowel Sounds. absent: Tenderness - Extremities Exam Extremities Exam: absent: Pedal Edema, Tenderness - Neurological Exam Neurological Exam: Alert, Awake, Oriented x3 - Skin Skin Exam: Dry, Intact, Normal Color, Warm Assessment and Plan - Assessment and Plan (Free Text) Plan: Right Sided Submandibular Sialolith * Failed outpatient antibiotic tx * ENT- Dr. Lebron consulted - help appreciated * Neck CT: Sialitis involving the submandibular gland on the right secondary to an obstructing calculus. Discrete fluid collection medial to the calculus suggests a small abscess. The fluid collection in could also represent a dilated portion of the submandibular duct. * Started on Zosyn Q6H * Tramadol PO TID PRN for pain 10/26: Dr. Lebron saw the patient and noted some improvement. He recommended continuing antibiotics and to give a one time dose of IV Decadron 10 mg. He will reconsider surgical options tomorrow after re-examining. Prophylactic Measures * GI PPX: Protonix 40mg IVP daily * DVT PPX: SCDs, Heparin Q12 * CLD - due to difficulty swallowing Case DW Dr. Fermin Kc PGY-1 <Fermin Pan - Last Filed: 10/26/16 19:40> Objective - Vital Signs/Intake and Output Vital Signs (last 24 hours): Temp Pulse Resp BP Pulse Ox 97.5 F L 77 20 105/68 97 10/26/16 16:00 10/26/16 16:00 10/26/16 16:00 10/26/16 16:00 10/26/16 16:00 Intake and Output: 10/26/16 10/27/16 18:59 06:59 Intake Total 700 Balance 700 - Medications Medications: Current Medications Docusate Sodium (Colace) 100 mg PO BID [facility] Last Admin: 10/26/16 17:15 Dose: 100 mg Heparin Sodium (Porcine) (Heparin) 5,000 units SC Q12 [facility] Last Admin: 10/26/16 09:26 Dose: 5,000 units Piperacillin Sod/Tazobactam Sod (Zosyn 3.375 Gm Iv Premix) 3.375 gm in 50 mls @ 200 mls/hr IVPB Q6H [facility] Last Admin: 10/26/16 14:22 Dose: 200 mls/hr Pantoprazole Sodium (Protonix Ec Tab) 20 mg PO DAILY [facility] Last Admin: 10/26/16 09:31 Dose: 20 mg Saccharomyces Boulardii (Florastor) 250 mg PO DAILY [facility] Last Admin: 10/26/16 09:26 Dose: 250 mg Tramadol HCl (Ultram) 50 mg PO TID PRN PRN Reason: Pain, moderate (4-7) Last Admin: 10/25/16 21:17 Dose: 50 mg - Labs Labs: 10/26/16 06:16 10/26/16 06:16 PT 13.4 SECONDS (9.7-12.2) H 10/23/16 18:17 INR 1.2 10/23/16 18:17 APTT 32 SECONDS (21-34) 10/23/16 18:17 Attending/Attestation - Attestation I have personally seen and examined this patient.: Yes I have fully participated in the care of the patient.: Yes I have reviewed all pertinent clinical information, including history, physical exam and plan: Yes Notes (Text): 10/26/16 19:38 Patient was seen and examined at 4:30 PM 10/26/16 350 B Upon FULL ROS: Pain in the right side of the face is currently much improved after the Decadron Moved his bowels today NO abdominal pain NO n/v/d Tolerating liquid diet NO other complaints upon FULL ROS In addition to the exam above: HEENT: dry tongue with white pasty material, no pain with palpation of Right Submandibular Gland at the angle of the mandible Assessments: 1). Right Submandibular Sialolith: Dr. Emmanuel to decide on whether surgery is needed on 10/27/16. Fermin Pan D.O.
[2016-10-27 00:26] VITALS: O2SAT 99
[2016-10-27] MEDS: Piperacill/Tazo 3.375gm in Dex 3.375 GM/50 ML BAG IVPB SCH ×3 (03:00→09:30)
[2016-10-27 07:19] VITALS: BP 95/61; PULSE 66; TEMP 98.1
[2016-10-27 07:21] LABS: CHLORIDE 99 mmol/L (98-107); POTASSIUM 3.9 mmol/L (3.6-5.2); SODIUM 140 mmol/L (132-148)
[2016-10-27 07:23] LABS: ALB/GLOB RATIO 1.1 (1.0-2.1); ALKALINE PHOSPHATASE 56 U/L (38-126); AST/SGOT 16 U/L (17-59); BILIRUBIN,TOTAL 0.7 mg/dL (0.2-1.3); CARBON DIOXIDE 26 mmol/L (22-30); GFR AFRICAN-AMERICAN > 60; TOTAL PROTEIN 7.2 g/dL (6.3-8.3)
[2016-10-27 07:24] LABS: ALT/SGPT 31 U/L (21-72); BLOOD UREA NITROGEN 8 mg/dL (9-20); CALCIUM 9.5 mg/dl (8.6-10.4); GLUCOSE,RANDOM 85 mg/dL (75-110)
[2016-10-27 07:50] LABS: BASO % 0.1 % (0.0-2.0); EOS % 0.2 % (0.0-4.0); HEMATOCRIT 43.4 % (35.0-51.0); LYMPH # 1.6 K/uL (1.0-4.3); LYMPH % 18.7 % (20.0-40.0); MEAN CELL VOLUME 75.9 fL (80.0-94.0); MEAN CORPUSCULAR HEMOGLOBIN 25.7 pg (27.0-31.0); MEAN CORPUSCULAR HGB CONC 33.8 g/dL (33.0-37.0); MEAN PLATELET VOLUME 7.4 fL (7.2-11.7); MONO # 0.5 K/uL (0.0-0.8); MONO % 5.8 % (0.0-10.0); RED CELL DISTRIBUTION WIDTH 13.2 % (11.5-14.5)
[2016-10-27 07:51] LABS: WHITE BLOOD COUNT 8.5 K/uL (4.8-10.8)
[2016-10-27] MEDS: Pantoprazole 20 mg EC Tab PO SCH (09:18)
[2016-10-27] MEDS: Saccharomyces Boulardi 250 mg Cap PO SCH (09:18)
--- NOTE | 2016-10-27 10:32 | CP.PCM.PN ---
Subjective - Date & Time of Evaluation Date of Evaluation: 10/27/16 Time of Evaluation: 10:30 - Subjective Subjective: very mild pain neck: decreased edema of right submandibular gland a/p: sialoadenitis resolving ok to d/c home on bactrim and medrol dose pack patient to follow up with dr. Oliveros as outpatient. Patient given dr. Oliveros number and I contacted Dr. Garcia and asked her to see him Objective - Vital Signs/Intake and Output Vital Signs (last 24 hours): Temp Pulse Resp BP Pulse Ox 98.1 F 66 20 95/61 L 99 10/27/16 07:16 10/27/16 07:16 10/27/16 07:16 10/27/16 07:16 10/27/16 07:16 Intake and Output: 10/27/16 10/27/16 06:59 18:59 Intake Total 600 Balance 600 - Medications Medications: Current Medications Docusate Sodium (Colace) 100 mg PO BID [facility] Last Admin: 10/27/16 09:18 Dose: 100 mg Heparin Sodium (Porcine) (Heparin) 5,000 units SC Q12 [facility] Piperacillin Sod/Tazobactam Sod (Zosyn 3.375 Gm Iv Premix) 3.375 gm in 50 mls @ 200 mls/hr IVPB Q6H [facility] Last Admin: 10/27/16 09:18 Dose: 200 mls/hr Pantoprazole Sodium (Protonix Ec Tab) 20 mg PO DAILY [facility] Last Admin: 10/27/16 09:18 Dose: 20 mg Saccharomyces Boulardii (Florastor) 250 mg PO DAILY [facility] Last Admin: 10/27/16 09:18 Dose: 250 mg Tramadol HCl (Ultram) 50 mg PO TID PRN PRN Reason: Pain, moderate (4-7) Last Admin: 10/25/16 21:17 Dose: 50 mg - Labs Labs: 10/27/16 06:52 10/27/16 06:52 PT 13.4 SECONDS (9.7-12.2) H 10/23/16 18:17 INR 1.2 10/23/16 18:17 APTT 32 SECONDS (21-34) 10/23/16 18:17
--- NOTE | 2016-10-27 10:44 | CP.PCM.PN ---
Subjective - Date & Time of Evaluation Date of Evaluation: 10/27/16 Time of Evaluation: 09:00 - Subjective Subjective: Patient was seen and examined at 9 AM 10/27/16 NO complaints upon FULL ROS NO dysphagia/odynophagia Moving his bowels Exam: Right Submandibular Gland is smaller compared to yesterday and nontender I spoke with Dr. Lebron and patient can be discharged. The following instructions should be provided to patient upon discharge: 1). Schedule follow up with Dr. Garcia to take place in [address] Lebron has already provided you with her contact information. 2). Please have the following prescriptions filled at your pharmacy: Bactrim DS, 1 tablet by mouth 2x/day (breakfast and dinner), Disp #20, NO refills Medrol Dose Amarjit, Please use as directed on box, Disp #1, NO refills 3). Please ask your pharmacist which Probiotic he/she recommends and take with lunch for the next 40 days. 4). Please keep well hydrated with water. 5). Please take care and be well. Fermin Pan D.O. Objective - Vital Signs/Intake and Output Vital Signs (last 24 hours): Temp Pulse Resp BP Pulse Ox 98.1 F 66 20 95/61 L 99 10/27/16 07:16 10/27/16 07:16 10/27/16 07:16 10/27/16 07:16 10/27/16 07:16 Intake and Output: 10/27/16 10/27/16 06:59 18:59 Intake Total 600 Balance 600 - Medications Medications: Current Medications Docusate Sodium (Colace) 100 mg PO BID [facility] Last Admin: 10/27/16 09:18 Dose: 100 mg Heparin Sodium (Porcine) (Heparin) 5,000 units SC Q12 [facility] Piperacillin Sod/Tazobactam Sod (Zosyn 3.375 Gm Iv Premix) 3.375 gm in 50 mls @ 200 mls/hr IVPB Q6H [facility] Last Admin: 10/27/16 09:18 Dose: 200 mls/hr Pantoprazole Sodium (Protonix Ec Tab) 20 mg PO DAILY [facility] Last Admin: 10/27/16 09:18 Dose: 20 mg Saccharomyces Boulardii (Florastor) 250 mg PO DAILY [facility] Last Admin: 10/27/16 09:18 Dose: 250 mg Tramadol HCl (Ultram) 50 mg PO TID PRN PRN Reason: Pain, moderate (4-7) Last Admin: 10/25/16 21:17 Dose: 50 mg - Labs Labs: 10/27/16 06:52 10/27/16 06:52 PT 13.4 SECONDS (9.7-12.2) H 10/23/16 18:17 INR 1.2 10/23/16 18:17 APTT 32 SECONDS (21-34) 10/23/16 18:17
--- NOTE | 2016-10-27 11:20 | CP.PCM.DIS ---
<Manuel Kc - Last Filed: 10/27/16 15:00> Provider - Provider Date of Admission: 10/25/16 11:55 Attending physician: Bobby Castandea MD Time Spent in preparation of Discharge (in minutes): 32 Diagnosis - Discharge Diagnosis (1) Sialolithiasis of submandibular gland Status: Acute (2) Prophylactic measure Status: Acute Hospital Course - Lab Results Lab Results: Most Recent Lab Values WBC 8.5 K/uL (4.8-10.8) D 10/27/16 06:52 RBC 5.72 Mil/uL (4.40-5.90) 10/27/16 06:52 Hgb 14.7 g/dL (12.0-18.0) 10/27/16 06:52 Hct 43.4 % (35.0-51.0) 10/27/16 06:52 MCV 75.9 fL (80.0-94.0) L 10/27/16 06:52 MCH 25.7 pg (27.0-31.0) L 10/27/16 06:52 MCHC 33.8 g/dL (33.0-37.0) 10/27/16 06:52 RDW 13.2 % (11.5-14.5) 10/27/16 06:52 Plt Count 286 K/uL (130-400) 10/27/16 06:52 MPV 7.4 fL (7.2-11.7) 10/27/16 06:52 Neut % (Auto) 75.2 % (50.0-75.0) H 10/27/16 06:52 Lymph % (Auto) 18.7 % (20.0-40.0) L 10/27/16 06:52 [place] % (Auto) 5.8 % (0.0-10.0) 10/27/16 06:52 Eos % (Auto) 0.2 % (0.0-4.0) 10/27/16 06:52 Baso % (Auto) 0.1 % (0.0-2.0) 10/27/16 06:52 Neut # 6.4 K/uL (1.8-7.0) 10/27/16 06:52 Lymph # 1.6 K/uL (1.0-4.3) 10/27/16 06:52 Kent # 0.5 K/uL (0.0-0.8) 10/27/16 06:52 Eos # 0.0 K/uL (0.0-0.7) 10/27/16 06:52 Baso # 0.0 K/uL (0.0-0.2) 10/27/16 06:52 PT 13.4 SECONDS (9.7-12.2) H 10/23/16 18:17 INR 1.2 10/23/16 18:17 APTT 32 SECONDS (21-34) 10/23/16 18:17 Sodium 140 mmol/L (132-148) 10/27/16 06:52 Potassium 3.9 mmol/L (3.6-5.2) 10/27/16 06:52 Chloride 99 mmol/L (98-107) 10/27/16 06:52 Carbon Dioxide 26 mmol/L (22-30) 10/27/16 06:52 Anion Gap 19 (10-20) 10/27/16 06:52 BUN 8 mg/dL (9-20) L 10/27/16 06:52 Creatinine 0.7 MG/DL (0.8-1.5) L 10/27/16 06:52 Est GFR ( Amer) > 60 10/27/16 06:52 Est GFR (Non-Af Amer) > 60 10/27/16 06:52 Random Glucose 85 mg/dL (75-110) 10/27/16 06:52 Calcium 9.5 mg/dl (8.6-10.4) 10/27/16 06:52 Total Bilirubin 0.7 mg/dL (0.2-1.3) 10/27/16 06:52 AST 16 U/L (17-59) L 10/27/16 06:52 ALT 31 U/L (21-72) 10/27/16 06:52 Alkaline Phosphatase 56 U/L (38-126) 10/27/16 06:52 Total Protein 7.2 g/dL (6.3-8.3) 10/27/16 06:52 Albumin 3.8 g/dL (3.5-5.0) 10/27/16 06:52 Globulin 3.4 gm/dL (2.2-3.9) 10/27/16 06:52 Albumin/Globulin Ratio 1.1 (1.0-2.1) 10/27/16 06:52 - Hospital Course Hospital Course: On admission: "31M with PMHx of right sided salivary stone came to the ED as per reccs of Dr. Lebron. Patient has a history of a salivary stone several years ago. He was seen at that time by Dr. Lebron and was given oral antibiotics and it resolved. Patient reports he started to feel the mass again over the weekend, had trouble swallowing and eating. He saw Dr. Lebron in his office on Wednesday, was given Augmentin. Patient has taken Augmentin x 5 days with no improvement. The pain has worsened and the patient is having difficulty even tolerating liquids. Patient reached out to Dr. Lebron who instructed the patient to come to the ED. As per Dr. Lebron patient pending transfer out in a few days for surgical excision. Denied fever, chills, headache, abdominal pain, n/v/d/c, or urinary symptoms. " Hospital Course: Patient admitted for right sided submandibular sialolith after failing outpatient treatment with Augmentin. Dr. Lebron (ENT) consulted. Neck CT revealed Sialitis involving the submandibular gland on the right secondary to an obstructing calculus. Discrete fluid collection medial to the calculus suggests a small abscess. The fluid collection in could also represent a dilated portion of the submandibular duct. Patient placed on IV Zosyn 3.375 gm Q6 since 10/23. On 10/26/16, Dr. Lebron recommended Decadron 10 mg IV one time dose which has led to clinical improvement as noted by patient. Dr. Lebron has cleared the patient for discharge from his perspective and given recommendations on antibiotic and corticosteroid prescriptions. No surgery necessary at this point in time. Patient is medically stable from medical team perspective. Dr. Lebron has recommended follow up with his ENT colleague Dr. Garcia who works out of [facility] in [place]. 1). Schedule follow up with Dr. Garcia to take place in 1 [address] Lebron has already provided you with her contact information. 2). Please have the following prescriptions filled at your pharmacy: Bactrim DS, 1 tablet by mouth 2x/day (breakfast and dinner), Disp #20, NO refills Medrol Dose Amarjit, Please use as directed on box, Disp #1, NO refills 3). Please ask your pharmacist which Probiotic he/she recommends and take with lunch for the next 40 days. 4). Please keep well hydrated with water. 5). Please take care and be well. - Date & Time of H&P Date of H&P: 10/27/16 Time of H&P: 11:30 Discharge Exam - Head Exam Head Exam: ATRAUMATIC, NORMAL INSPECTION, NORMOCEPHALIC - Eye Exam Eye Exam: EOMI, PERRL - ENT Exam ENT Exam: Mucous Membranes Moist - Neck Exam Additional comments: Slight reduction in size of right sided neck mass compared to yesterday - Respiratory Exam Respiratory Exam: Clear to PA & Lateral. absent: Rales, Rhonchi, Wheezes - Cardiovascular Exam Cardiovascular Exam: REGULAR RHYTHM, +S1, +S2 - GI/Abdominal Exam GI & Abdominal Exam: Normal Bowel Sounds, Soft. absent: Tenderness - Extremities Exam Extremities exam: pedal pulses present - Neurological Exam Neurological exam: Alert, CN II-XII Intact, Oriented x3 - Skin Skin Exam: Dry, Intact, Normal Color, Warm Discharge Plan - Follow Up Plan Condition: STABLE Disposition: HOME/ ROUTINE Instructions: Sulfamethoxazole/Trimethoprim (By mouth), Methylprednisolone (By mouth), Parotid Duct Obstruction (GEN) Additional Instructions: 1). Schedule follow up with Dr. Garcia to take place in [address] Lebron has already provided you with her contact information. 2). Please have the following prescriptions filled at your pharmacy: Bactrim DS, 1 tablet by mouth 2x/day (breakfast and dinner), Disp #20, NO refills Medrol Dose Amarjit, Please use as directed on box, Disp #1, NO refills 3). Please ask your pharmacist which Probiotic he/she recommends and take with lunch for the next 40 days. 4). Please keep well hydrated with water. 5). Please take care and be well. Referrals: Haris Lebron MD [Staff Provider] - Christianne Garcia MD [Medical Doctor] - <Fermin Pan - Last Filed: 10/27/16 19:12> Provider - Provider Date of Admission: 10/25/16 11:55 Attending physician: Bobby Castaneda MD Hospital Course - Lab Results Lab Results: Most Recent Lab Values WBC 8.5 K/uL (4.8-10.8) D 10/27/16 06:52 RBC 5.72 Mil/uL (4.40-5.90) 10/27/16 06:52 Hgb 14.7 g/dL (12.0-18.0) 10/27/16 06:52 Hct 43.4 % (35.0-51.0) 10/27/16 06:52 MCV 75.9 fL (80.0-94.0) L 10/27/16 06:52 MCH 25.7 pg (27.0-31.0) L 10/27/16 06:52 MCHC 33.8 g/dL (33.0-37.0) 10/27/16 06:52 RDW 13.2 % (11.5-14.5) 10/27/16 06:52 Plt Count 286 K/uL (130-400) 10/27/16 06:52 MPV 7.4 fL (7.2-11.7) 10/27/16 06:52 Neut % (Auto) 75.2 % (50.0-75.0) H 10/27/16 06:52 Lymph % (Auto) 18.7 % (20.0-40.0) L 10/27/16 06:52 [place] % (Auto) 5.8 % (0.0-10.0) 10/27/16 06:52 Eos % (Auto) 0.2 % (0.0-4.0) 10/27/16 06:52 Baso % (Auto) 0.1 % (0.0-2.0) 10/27/16 06:52 Neut # 6.4 K/uL (1.8-7.0) 10/27/16 06:52 Lymph # 1.6 K/uL (1.0-4.3) 10/27/16 06:52 [place] # 0.5 K/uL (0.0-0.8) 10/27/16 06:52 Eos # 0.0 K/uL (0.0-0.7) 10/27/16 06:52 Baso # 0.0 K/uL (0.0-0.2) 10/27/16 06:52 PT 13.4 SECONDS (9.7-12.2) H 10/23/16 18:17 INR 1.2 10/23/16 18:17 APTT 32 SECONDS (21-34) 10/23/16 18:17 Sodium 140 mmol/L (132-148) 10/27/16 06:52 Potassium 3.9 mmol/L (3.6-5.2) 10/27/16 06:52 Chloride 99 mmol/L (98-107) 10/27/16 06:52 Carbon Dioxide 26 mmol/L (22-30) 10/27/16 06:52 Anion Gap 19 (10-20) 10/27/16 06:52 BUN 8 mg/dL (9-20) L 10/27/16 06:52 Creatinine 0.7 MG/DL (0.8-1.5) L 10/27/16 06:52 Est GFR ( Amer) > 60 10/27/16 06:52 Est GFR (Non-Af Amer) > 60 10/27/16 06:52 Random Glucose 85 mg/dL (75-110) 10/27/16 06:52 Calcium 9.5 mg/dl (8.6-10.4) 10/27/16 06:52 Total Bilirubin 0.7 mg/dL (0.2-1.3) 10/27/16 06:52 AST 16 U/L (17-59) L 10/27/16 06:52 ALT 31 U/L (21-72) 10/27/16 06:52 Alkaline Phosphatase 56 U/L (38-126) 10/27/16 06:52 Total Protein 7.2 g/dL (6.3-8.3) 10/27/16 06:52 Albumin 3.8 g/dL (3.5-5.0) 10/27/16 06:52 Globulin 3.4 gm/dL (2.2-3.9) 10/27/16 06:52 Albumin/Globulin Ratio 1.1 (1.0-2.1) 10/27/16 06:52 Attending/Attestation - Attestation I have personally seen and examined this patient.: Yes I have fully participated in the care of the patient.: Yes I have reviewed all pertinent clinical information, including history, physical exam and plan: Yes
== END 2016-10-27 12:05 | disposition home or self-care (01) | DRG 73 ==
LOC: C.ER 16:52 → C.9E 19:44 → C.3T 20:35 → OBSVTOIN 10-25 11:55
PROVIDERS: ADMIT Family Medicine; ATTEND Family Medicine
DX: K11.5 Sialolithiasis (principal); K11.21 Acute sialoadenitis